=== PATIENT | female | born 1980 | race Caucasian/White ===

== ENCOUNTER 2020-10-15 07:03 | Day surgery (SDC) | payer MEDICAID ==
[2020-10-15] MEDS ORDERED: fentaNYL 100 MCG/2 ML SDV ONE (07:07)
[2020-10-15] MEDS ORDERED: Midazolam 1 MG/ML 2 ML SDV ONE (07:07)
[2020-10-15] MEDS ORDERED: Propofol 200 MG/20 ML SDV ONE (07:07)
[2020-10-15] MEDS ORDERED: Dextrose 5%-Lactated Ringers 1,000 ML IV SCH (07:30)
--- NOTE | 2020-10-19 12:03 | OR ---
DATE OF PROCEDURE: 10/15/2020 SURGEON: Jus Coelho MD PREOPERATIVE DIAGNOSIS: Severe reflux associated with previous laparoscopic adjustable gastric band placement with persistent and now recurrently severe morbid obesity. POSTOPERATIVE DIAGNOSES: 1. Esophageal dilation involving her laparoscopic adjustable gastric band with severe esophagitis, retained bile, and fluid within distal esophagus. 2. Moderate antral gastritis. OPERATIVE PROCEDURE: Upper GI endoscopy with biopsies of antrum for CLOtest. ANESTHESIA: IV sedation. INDICATIONS FOR PROCEDURE: A 40-year-old status post a laparoscopic adjustable gastric band placed in [place], [place] in 2007. Preoperatively, she had a weight of 402 pounds. Postoperatively, she did get down into the range of 300 to 310 pounds at one point, but now has had significant weight regain. Present weight is 386 pounds with a height of 5 feet 6 inches giving her a BMI of 62.5. The patient over the last 2 years has had progressive problems with severe reflux symptoms often waking up aspirating esophageal contents. Associated additional weight related comorbidities currently include PCOS, female infertility, hypertension, prediabetes, and considerable problems with pain in her weightbearing joints. Upper GI endoscopy was done on 10/15. This showed a marked esophageal dilation and severe distal esophagitis associated with the band placement. The band was otherwise in adequate location and was wide-open in terms of the location of the band (there is no obstruction located at that level indicating that we are dealing primarily with an esophageal dysmotility related to the band placement. The patient did have some moderate antral gastritis without erosions or ulcers. The pyloric channel and proximal duodenum were unremarkable. Biopsies were obtained from the antrum and sent for CLOtest for H pylori. Minimal bleeding from the biopsy sites was seen and the procedure was then concluded. The patient would appear to be a candidate for removal of the band and conversion to Steve-en- Y gastric bypass, and given the amount of reflux and likelihood of upcoming pulmonary complications and/or esophageal complications related to the problem, this would be at this point somewhat of an imperative procedure. This generally can be done laparoscopically. The plan at this point will be to proceed with a DICTATION ENDS HERE Jus Coelho MD /[id number]
== END 2020-10-15 10:35 | disposition home or self-care (01) ==
LOC: JP.SDS 07:03
PROVIDERS: ATTEND Surgery
DX: K29.70 Gastritis, unspecified, without bleeding (principal); K21.00 Gastro-esophageal reflux disease with esophagitis, without bleeding; E66.01 Morbid (severe) obesity due to excess calories; I10 Essential (primary) hypertension; E11.9 Type 2 diabetes mellitus without complications; Z98.890 Other specified postprocedural states; Z98.84 Bariatric surgery status; Z68.44 Body mass index [BMI] 60.0-69.9, adult
CPT/HCPCS: 36415; 84703; 87081; J2250; J2704; J3010; J7121

== ENCOUNTER 2020-11-29 07:15 | Inpatient (IN) | payer MEDICAID ==
[2020-11-29] MEDS ORDERED: Bupivacaine 0.5%/EPINEPHrine 1:200,000 50 ML MDV ONE ×2 (08:03→09:49)
[2020-11-29] MEDS ORDERED: Glycopyrrolate 0.2 MG/ML 5 ML MDV ONE (09:02)
[2020-11-29] MEDS ORDERED: Propofol 200 MG/20 ML SDV ONE (09:02)
[2020-11-29] MEDS ORDERED: Rocuronium 50 MG/5 ML Vial ONE ×2 (09:02→11:46)
[2020-11-29] MEDS ORDERED: Dexamethasone 4 MG/ML SDV ONE (09:02)
[2020-11-29] MEDS ORDERED: Succinylcholine 200 MG/10 ML MDV ONE (09:02)
[2020-11-29] MEDS ORDERED: Neostigmine Methylsulfate 1 MG/ML 5 ML Syringe ONE (09:02)
[2020-11-29] MEDS ORDERED: fentaNYL 250 MCG/5 ML SDV ONE ×3 (09:02→12:06)
[2020-11-29] MEDS ORDERED: Ondansetron 4 MG/2 ML SDV ONE (09:02)
[2020-11-29] MEDS ORDERED: Albuterol/Ipratropium 3.0-0.5 MG/3 ML Neb Soln NEB ONE (10:15)
[2020-11-29] MEDS ORDERED: Celecoxib 200 MG Cap PO ONE (10:15)
[2020-11-29] MEDS ORDERED: Dextrose 5%-Lactated Ringers 1,000 ML IV SCH (10:15)
[2020-11-29] MEDS ORDERED: Acetaminophen 500 MG Tab PO ONE (10:30)
[2020-11-29 10:54] LABS: HEMOGLOBIN A1C 5.9 % (4.5-6.2)
[2020-11-29] MEDS ORDERED: cefOXitin 2 GM in Sodium Chloride 0.9% 50 ML IV ONE (11:15)
[2020-11-29] MEDS ORDERED: Ketamine 500 MG/5 ML MDV IV SCH (11:30)
[2020-11-29] MEDS ORDERED: Magnesium Sulfate 5.7 GM in Sodium Chloride 0.9% 250 ML IV ONE (11:30)
[2020-11-29] MEDS ORDERED: Ketamine 50 MG in Sodium Chloride 0.9% 49.5 ML IV SCH (11:30)
[2020-11-29] MEDS ORDERED: Lactated Ringers 1,000 ML ONE (11:55)
[2020-11-29] MEDS: cefOXitin 2 GM Vial ONE ×3 (12:02→13:05)
[2020-11-29] MEDS ORDERED: hydrOXYzine HCL 100 MG/2 ML SDV IM ONE (13:38)
[2020-11-29] MEDS ORDERED: Ondansetron 4 MG/2 ML SDV IVPUSH ONE (13:40)
[2020-11-29] MEDS ORDERED: Lactated Ringers 1,000 ML IV SCH (15:00)
[2020-11-29] MEDS ORDERED: HYDROmorphone 0.5 MG/0.5 ML Syringe IVPUSH PRN (15:00)
[2020-11-29] MEDS ORDERED: diphenhydrAMINE 50 MG/ML SDV IVPUSH PRN (15:00)
[2020-11-29] MEDS ORDERED: Acetaminophen 500 MG Tab PO PRN (15:00)
[2020-11-29] MEDS ORDERED: Albuterol/Ipratropium 3.0-0.5 MG/3 ML Neb Soln INH PRN (15:00)
[2020-11-29] MEDS ORDERED: Labetalol 20 MG/4 ML Syringe IVPUSH PRN (15:00)
[2020-11-29] MEDS ORDERED: Glucagon,Human Recombinant 1 MG Vial IM PRN (15:00)
[2020-11-29] MEDS ORDERED: 50% Dextrose in Water 50 ML Syringe IVPUSH PRN (15:00)
[2020-11-29] MEDS ORDERED: Insulin Lispro 100 Unit/ML 3 ML KwikPen SUBCUT PRN (15:00)
[2020-11-29] MEDS ORDERED: Calcium Gluconate 10% 1 GM/10 ML SDV IVPUSH PRN (15:00)
[2020-11-29] MEDS: hydrOXYzine HCL 100 MG/2 ML SDV IM PRN ×2 (15:08→19:50)
[2020-11-29] MEDS: Dextrose 5%-Lactated Ringers 1,000 ML IV SCH (15:12)
[2020-11-29] MEDS: oxyCODONE 5 MG Tab PO PRN (15:42)
[2020-11-29] MEDS ORDERED: MVI, Adult with Vitamin K 10 ML, Thiamine 200 MG, Zinc/Copper/Manganese/Selenium 1 ML i... IV SCH ×4 (16:00)
[2020-11-29] MEDS: cefOXitin 2 GM in Sodium Chloride 0.9% 50 ML IV SCH ×2 (16:13→21:05)
[2020-11-29] MEDS: Acetaminophen 500 MG Tab PO SCH (16:19)
[2020-11-29] MEDS: Pantoprazole 40 MG Vial IVPUSH SCH (16:23)
[2020-11-29] MEDS: Albuterol/Ipratropium 3.0-0.5 MG/3 ML Neb Soln INH SCH ×2 (16:52→20:52)
[2020-11-29] MEDS: Ondansetron 4 MG/2 ML SDV IVPUSH PRN ×2 (18:25→23:41)
[2020-11-29] MEDS: HYDROmorphone 1 MG/ML Syringe IV PRN (18:25)
[2020-11-29] MEDS: Cyclobenzaprine 10 MG Tab PO PRN (19:51)
[2020-11-29] MEDS: Heparin Sodium 5,000 Units/ML Vial SUBCUT SCH (19:51)
[2020-11-29] MEDS: Doxepin 25 MG Cap PO SCH (20:52)
[2020-11-29] MEDS: DULoxetine 30 MG Cap PO SCH (20:52)
[2020-11-29] MEDS: Topiramate 100 MG Tab PO SCH (20:53)
[2020-11-30] MEDS: Acetaminophen 500 MG Tab PO SCH ×3 (00:10→15:35)
[2020-11-30] MEDS ORDERED: Iopamidol 612 MG/ML 50 ML SDV PO STA (02:12)
[2020-11-30] MEDS: oxyCODONE 5 MG Tab PO PRN (02:56)
[2020-11-30] MEDS: cefOXitin 2 GM in Sodium Chloride 0.9% 50 ML IV SCH ×4 (04:11→22:13)
[2020-11-30] MEDS: Dextrose 5%-Lactated Ringers 1,000 ML IV SCH (04:12)
[2020-11-30] MEDS: hydrOXYzine HCL 100 MG/2 ML SDV IM PRN ×2 (07:15→13:04)
[2020-11-30] MEDS: Ondansetron 4 MG/2 ML SDV IVPUSH PRN ×3 (07:16→20:45)
[2020-11-30] MEDS: Albuterol/Ipratropium 3.0-0.5 MG/3 ML Neb Soln INH SCH ×4 (07:22→20:45)
[2020-11-30] MEDS: Lactated Ringers 1,000 ML IV SCH (09:00)
[2020-11-30] MEDS: Metoclopramide 10 MG/2 ML SDV IVPUSH PRN (09:01)
[2020-11-30] MEDS: HYDROmorphone 1 MG/ML Syringe IV PRN ×2 (09:03→14:02)
--- NOTE | 2020-11-30 09:04 | CR ---
[facility] HISTORY: Postbariatric surgery FINDINGS: Patient swallowed water-soluble contrast. Upright views of the abdomen show no evidence of extravasation or obstruction. IMPRESSION: Status post bariatric surgery No extravasation or obstruction seen
[2020-11-30] MEDS: Heparin Sodium 5,000 Units/ML Vial SUBCUT SCH ×2 (09:09→20:46)
[2020-11-30] MEDS ORDERED: LORazepam 2 MG/ML SDV IVPUSH PRN (10:38)
[2020-11-30] MEDS ORDERED: Scopolamine 1.5 MG Transdermal Patch TRDERM PRN (10:38)
[2020-11-30] MEDS: Topiramate 100 MG Tab PO SCH ×3 (11:05→20:46)
[2020-11-30] MEDS: Celecoxib 200 MG Cap PO SCH ×3 (11:05→20:46)
[2020-11-30] MEDS: Pantoprazole 40 MG Vial IVPUSH SCH (15:35)
[2020-11-30] MEDS ORDERED: MVI, Adult with Vitamin K 10 ML, Thiamine 200 MG, Zinc/Copper/Manganese/Selenium 1 ML i... IV SCH ×4 (16:00)
[2020-11-30] MEDS: DULoxetine 30 MG Cap PO SCH (20:46)
[2020-11-30] MEDS: Doxepin 25 MG Cap PO SCH (20:47)
[2020-12-01] MEDS: Acetaminophen 500 MG Tab PO SCH ×3 (00:38→16:54)
[2020-12-01] MEDS: Metoclopramide 10 MG/2 ML SDV IVPUSH PRN ×3 (01:44→21:28)
[2020-12-01] MEDS: Lactated Ringers 1,000 ML IV SCH ×2 (03:15→12:58)
[2020-12-01] MEDS: Ondansetron 4 MG/2 ML SDV IVPUSH PRN ×3 (07:11→19:43)
[2020-12-01] MEDS: Albuterol/Ipratropium 3.0-0.5 MG/3 ML Neb Soln INH SCH ×4 (07:25→21:21)
[2020-12-01] MEDS ORDERED: HYDROmorphone 2 MG Tab PO PRN (07:40)
[2020-12-01] MEDS ORDERED: Magnesium Hydroxide 400 MG/5 ML Susp 30 ML Cup PO PRN (07:41)
[2020-12-01] MEDS ORDERED: Pneumococcal Polyvalent-23 Vaccine 0.5 ML SDV IM ONE (09:00)
[2020-12-01] MEDS ORDERED: Magnesium Hydroxide 400 MG/5 ML Susp 30 ML Cup PO ONE (09:00)
[2020-12-01] MEDS ORDERED: Cyanocobalamin (Vitamin B12) 1,000 MCG/ML SDV IM ONE (09:00)
[2020-12-01] MEDS: Celecoxib 200 MG Cap PO SCH ×2 (09:37→21:21)
[2020-12-01] MEDS: Topiramate 100 MG Tab PO SCH ×2 (09:37→21:22)
[2020-12-01] MEDS: Heparin Sodium 5,000 Units/ML Vial SUBCUT SCH ×2 (09:38→19:47)
[2020-12-01] MEDS: Pantoprazole 40 MG Vial IVPUSH SCH (16:54)
[2020-12-01] MEDS: Cyclobenzaprine 10 MG Tab PO PRN (19:44)
[2020-12-01] MEDS: DULoxetine 30 MG Cap PO SCH (21:20)
[2020-12-01] MEDS: Doxepin 25 MG Cap PO SCH (21:21)
[2020-12-02] MEDS: Acetaminophen 500 MG Tab PO SCH ×2 (01:10→09:15)
[2020-12-02] MEDS: Albuterol/Ipratropium 3.0-0.5 MG/3 ML Neb Soln INH SCH (07:29)
[2020-12-02] MEDS ORDERED: Ondansetron 4 MG Tab.DIS PO PRN (08:52)
[2020-12-02] MEDS ORDERED: Scopolamine 1.5 MG Transdermal Patch TRDERM ONE (09:00)
[2020-12-02] MEDS: Celecoxib 200 MG Cap PO SCH (09:15)
[2020-12-02] MEDS: Heparin Sodium 5,000 Units/ML Vial SUBCUT SCH (09:15)
[2020-12-02] MEDS: Topiramate 100 MG Tab PO SCH (09:15)
--- NOTE | 2020-12-07 11:27 | PN ---
DATE OF SERVICE: 12/01/2020 The patient has been afebrile with stable vital signs. Oral intake still appeared little bit on the lower side. We will keep her one more day to work on that issue with the ongoing nausea and switch over to strictly oral Dilaudid for pain. The Dilaudid may be covering for some of her nausea. Her blood sugars are all running in the 120s, and we will discontinue the Accu-Cheks. Jus Coelho MD /[id number]
--- NOTE | 2020-12-07 13:18 | PN ---
DATE OF SERVICE: 11/30/2020 The patient has been afebrile with stable vital signs. She has been a little slow to get up and moving. She did retain urine overnight and had a straight cath of around 500 mL. If she fails to void today, we will put a Calderon catheter in and leave that in overnight. Otherwise, upper GI x-ray looks good. We will encourage increased oral intake today and increasing activity and work with pulmonary toilet. Jus Coelho MD /[id number]
--- NOTE | 2020-12-10 11:11 | DISCH ---
FINAL DIAGNOSES: Persistent morbid obesity with ongoing intolerance to laparoscopic adjustable gastric band. SECONDARY DIAGNOSES: 1. Polycystic ovary syndrome. 2. History of hypertension. 3. Chronic low back pain. 4. Posttraumatic stress disorder. 5. History of asthma. 6. History of migraine headaches. OPERATIVE PROCEDURES: This was done on 11/29/2020, diagnostic laparoscopy with: 1. Removal of laparoscopic adjustable gastric band system. 2. Formation of Steve-en-Y gastric bypass. 3. Genaro-Cut needle liver biopsy. 4. Partial gastrectomy. SUMMARY: This is a 40-year-old female presenting with history of previous laparoscopic adjustable gastric band, placed in [place]. She presented with severe heartburn and on upper endoscopy was noted to have markedly dilated esophagus related to the band. After consultation, she wished to proceed to be converted to a Steve-en-Y gastric bypass. This was done on the date of admission along with the liver biopsy. She had a portion of the pouch which was somewhat ischemic, which was resected as well at the time of the procedure. Initially, the patient had quite a bit in way of nausea. This has now seemingly resolved and oral intake is becoming adequate. The plan will be to discharge home with stay on a step-2 diet until the first appointment which will be with Tana Hall PA-C on 12/10/2020 at [facility]. She will be taking only Celebrex as needed for pain. Otherwise, her blood sugars have all been in the 120s off any metformin, and we will have her go off the metformin at this point. The PCOS should likewise improve with weight loss. She will be discharged with a first scopolamine patch, which she has been instructed to take off in 4 days, then Zofran 4 mg ODT. Otherwise, she will be continued on her usual medications other than we will have her stop the omeprazole after 1 week and with the gastric bypass let us have her avoid naproxen. Celebrex would be an adequate alternative long-term should she need medications from an arthritis standpoint. /[id number]
--- NOTE | 2020-12-10 17:56 | OR ---
DATE OF PROCEDURE: 11/29/2020 SURGEON: Jus Coelho MD PREOPERATIVE DIAGNOSIS: Intolerance of laparoscopic adjustable gastric band with persistent morbid obesity. POSTOPERATIVE DIAGNOSES: 1. Intolerance of laparoscopic adjustable gastric band with persistent morbid obesity. 2. Marked hepatomegaly. 3. Area of deserosalization of gastric fundus, status post takedown of laparoscopic adjustable gastric band. OPERATIVE PROCEDURES: Diagnostic laparoscopy with: 1. Removal of laparoscopic adjustable gastric band system (91654). 2. Formation of Steve-en-Y gastric bypass (16281). 3. Genaro-Cut needle liver biopsy (71084). 4. Partial gastrectomy (39334). ANESTHESIA: General. SOFTWARE RELEASE MANAGER: Tana Hall PA-C. INDICATIONS FOR PROCEDURE: This is a 40-year-old status post laparoscopic adjustable gastric band placement in [place], who presents now with increasing intolerance to the band system with large amount of reflux and esophageal dilation noted on preoperative examination. She remains morbidly obese as well with a BMI in excess of 60, and the plan is to proceed with removal of band system and conversion to a Steve-en-Y gastric bypass. Potential risks including bleeding, infection, injury to underlying viscera, problems with leaks from GI tract closures, and possible problems with bowel obstruction over time were all reviewed along with the remote possibility of cardiopulmonary, septic, or hemorrhagic complications leading to , and the patient wishes to proceed. DETAILS OF PROCEDURE: The patient was taken to the operating room, and after general endotracheal anesthesia was induced, a Calderon catheter was inserted and she was converted to a lithotomy position. The abdomen was then prepped and draped. 15 cm inferior and 5 cm left of the xiphoid process, a transverse incision was made and peritoneal cavity entered under direct vision with an Optiview trocar, inflated to 15 mmHg pressure of CO2. Laparoscope was then reinserted. No underlying trocar insertion site injuries were seen. Bilateral transversus abdominis plane blocks were then placed and 5 additional trocars were placed across the upper and mid abdomen. The patient was noted to have a marked hepatomegaly with liver volume being roughly 2 to 3 times normal and grossly fatty infiltrated. Genaro-Cut needle biopsies were obtained from the left lobe of the liver. Minimal bleeding from the biopsy sites was controlled with electrocautery. The omentum was then divided in the midline up to level of the transverse colon with Harmonic Scalpel. The port tubing in that area was somewhere in the way of visualization and a portion of this was excised and sent separately at this time. The small bowel was then identified at the ligament of Treitz and traced out 150 cm distal to that point, where it was divided transversely with a MARYURI stapler. Small bowel was then traced out additional 150 cm where the [id number] enteroenterostomy was accomplished with an internal firing of the Endo-MARYURI 60 mm stapler. Common opening was then closed transversely with the same stapler and angles anastomosed and mesenteric defect approximated with some 0 Ethibond stitch along with fibrin sealant. The Steve limb was then brought through an antecolic approach up to the level of the gastroesophageal junction without significant tension. The liver was then retracted anteriorly. There were some adhesions between the band system and liver which were taken down with a combination of electrocautery and Harmonic Scalpel. The gastric fundus used to fix the band in position was then dissected away from its more superior attachments with a combination of electrocautery and braulio. Portion of the gastric fundus on its lateral aspect was devascularized and this was excised by means of MARYURI braulio at this point to avoid issues of leak and such postoperatively. Once all the adhesions of the band were divided, the band itself was transected and removed. This was disconnected and then taken out of the abdomen, leaving only the port as part of the band system in place at this time. Using the band imprint, the stomach was then divided with a series of MARYURI black loads. This was done to a point where there was complete division of any attachments between the upper stomach and the lower stomach by means of re-division of the band imprint. The anvil of a 25 mm EEA stapler was then attached to [place] sump type tube, brought down through the mouth, and taken out through a small opening in the proximal gastric pouch, allowing the anvil likewise to be pulled down to within the gastric pouch. Divided end of the Steve limb was then opened and main body of the EEA stapler passed several centimeters into the lumen of the small bowel brought up the anvil, united with it thus creating a gastrojejunostomy. Upon removal of the stapler, double donuts of mucosa were noted within it. The small bowel was closed off with a vascular staple line. Gastrojejunostomy was then reinforced with several 3-0 Vicryl seromuscular sutures along with fibrin sealant. A leak test was accomplished with injection of 120 mL of air in the gastric pouch while it was submerged with a cefoxitin-containing saline solution. No leaks were identified. A single Salvatore-Omer drain was then taken out through the left lateral trocar site and positioned adjacent to the gastrojejunostomy from there up into the splenic fossa. Trocars were then removed and the peritoneal cavity deflated. Incisions were closed with some 4-0 Vicryl skin stitch which was also used to fix the drain. The incision over the port was then made and remaining short-segment of port tubing was freed up from the surrounding soft tissues and removed. That incision was then closed with some 3-0 Vicryl stitch deep and 4-0 Vicryl skin stitch. Dressing was applied. The patient was taken to the recovery room in satisfactory condition. Physician porcelain buildup assistant, Tana Hall, played an essential role in assisting in this case, helping to position the patient, retract structures as needed, as well as suturing and cutting sutures when indicated. Her presence improved patient safety and decreased operative time. Jus Coelho MD /[id number]
--- NOTE | 2020-12-12 12:12 | DISCH ---
FINAL DIAGNOSES: 1. Intolerance to laparoscopic adjustable gastric band with persistent morbid obesity. 2. Marked hepatomegaly. 3. Deserosalization of the stomach, status post takedown of laparoscopic adjustable gastric band. SECONDARY DIAGNOSES: 1. Anxiety. 2. Chronic leg and low back pain. 3. Depression. 4. Hypertension. OPERATIVE PROCEDURES: This was done on 11/29, diagnostic laparoscopy with: 1. Removal of laparoscopic adjustable gastric band system. 2. Formation of Steve-en-Y gastric bypass with long limb gastroenterostomy. 3. Genaro-Cut needle liver biopsy. 4. Partial gastrectomy. SUMMARY: This is a 40-year-old presenting with persistent morbid obesity and increasingly intolerance to laparoscopic adjustable gastric band with upper endoscopy recently showing marked dilation of esophagus with severe distal esophagitis consistent with a picture of esophageal dilation and dysmotility above the band. After preoperative discussion, the patient wishes to undergo the removal of laparoscopic adjustable gastric band system and conversion to a Steve-en-Y gastric bypass. At that time, the patient was noted to have marked hepatomegaly as one might expect, and liver biopsies were obtained and portion of the gastric fundus used to wrap around and replaced the deserosalization that was excised. Postoperatively, she had a little bit slow recovery in terms of increasing activity and getting her bowels moving. The problems eventually had resolved after we discharged home at this time, and she will be following with Tana Hall in [facility] on 12/10/2020. She will be on usual medications plus Tylenol and Celebrex as needed for pain. She will not be requiring any narcotics on discharge. /[id number]
== END 2020-12-02 11:00 | disposition home or self-care (01) | DRG 621 ==
LOC: EDSTATUS 07:15 → JP.SDS 09:28 → JP.MS 13:00
PROVIDERS: ADMIT Surgery; ATTEND Surgery
PROC: 0D164ZA Bypass Stomach to Jejunum, Percutaneous Endoscopic Approach (ICD-10-PCS; principal; 2020-11-29)
PROC: 0DP64CZ Removal of Extraluminal Device from Stomach, Percutaneous Endoscopic Approach (ICD-10-PCS; 2020-11-29)
PROC: 0FB24ZX Excision of Left Lobe Liver, Percutaneous Endoscopic Approach, Diagnostic (ICD-10-PCS; 2020-11-29)
PROC: 0DB64ZZ Excision of Stomach, Percutaneous Endoscopic Approach (ICD-10-PCS; 2020-11-29)
DX: E66.01 Morbid (severe) obesity due to excess calories (principal); R16.0 Hepatomegaly, not elsewhere classified; F41.9 Anxiety disorder, unspecified; G89.29 Other chronic pain; M54.5 Low back pain; F32.9 Major depressive disorder, single episode, unspecified; I10 Essential (primary) hypertension; F43.10 Post-traumatic stress disorder, unspecified; G43.909 Migraine, unspecified, not intractable, without status migrainosus; J45.909 Unspecified asthma, uncomplicated; E28.2 Polycystic ovarian syndrome; Z68.44 Body mass index [BMI] 60.0-69.9, adult; Z90.49 Acquired absence of other specified parts of digestive tract; Z87.891 Personal history of nicotine dependence; Z88.5 Allergy status to narcotic agent; Z88.0 Allergy status to penicillin; Z91.030 Bee allergy status; Z88.2 Allergy status to sulfonamides; Z88.8 Allergy status to other drugs, medicaments and biological substances; K31.9 Disease of stomach and duodenum, unspecified
CPT/HCPCS: 36415; 51798; 74240; 74240-26; 80053; 82728; 82962; 83036; 83735; 84100; 85027; 86850; 86900; 86901; 88300; 88305; 88307; 88313; 93005; 94640; 94762; A9270-GY; C9113; J0171; J0330; J0694; J1100; J1170; J1200; J1644; J1815; J2060; J2405; J2704; J2710; J2765; J2795; J3010; J3410; J3411; J3420; J3475; J3490; J7030; J7050; J7120; J7121; J7620-GY; Q9967

== ENCOUNTER 2021-01-25 09:07 | Day surgery (SDC) | payer MEDICAID ==
[2021-01-25] MEDS ORDERED: Lactated Ringers 1,000 ML IV SCH (09:45)
[2021-01-25 10:00] LABS: CORONAVIRUS COVID-19 NAA NEGATIVE (NEGATIVE)
[2021-01-25] MEDS ORDERED: Cyanocobalamin (Vitamin B12) 1,000 MCG/ML SDV IM ONE (10:00)
[2021-01-25] MEDS ORDERED: Ondansetron 4 MG/2 ML SDV IVPUSH ONE (10:02)
[2021-01-25] MEDS ORDERED: MVI, Adult with Vitamin K 10 ML, Zinc/Copper/Manganese/Selenium 1 ML, Thiamine 200 MG i... IV ONE ×4 (10:45)
[2021-01-25] MEDS ORDERED: fentaNYL 100 MCG/2 ML SDV ONE (11:19)
[2021-01-25] MEDS ORDERED: Propofol 200 MG/20 ML SDV ONE ×2 (11:19→11:45)
[2021-01-25] MEDS ORDERED: Midazolam 1 MG/ML 2 ML SDV ONE (11:19)
[2021-01-25] MEDS ORDERED: Dexamethasone 4 MG/ML SDV ONE (11:20)
--- NOTE | 2021-02-03 13:36 | OR ---
DATE OF PROCEDURE: 01/25/2021 SURGEON: Jus Coelho MD PREOPERATIVE DIAGNOSIS: Probable stricture at gastrojejunostomy. POSTOPERATIVE DIAGNOSES: 1. Tight stricture of gastrojejunostomy. 2. Foreign body (ingested food) lodged at gastrojejunostomy. OPERATIVE PROCEDURE: Upper gastrointestinal endoscopy with: 1. Dilation of gastrojejunostomy (76884). 2. Removal of foreign body (ingested food) at gastrojejunostomy (91808). ANESTHESIA: IV sedation. INDICATION FOR PROCEDURE: This is a 40-year-old status post band conversion to Steve-en-Y gastric bypass on 11/29/2020. She presents now with symptoms suggestive of stricturing at her gastrojejunostomy. Plan is to proceed with upper GI endoscopy with dilation as indicated. Potential risks including bleeding and perforation were discussed, and the patient wishes to proceed. DETAILS OF PROCEDURE: The patient was taken to the operating room and placed in a left lateral decubitus position. IV sedation was administered, after which the upper GI endoscope was passed orally through the length of the esophagus into the area of the gastrojejunostomy. Some solid food was present at that level, and below this, the patient was noted to have a tight stricture at the gastrojejunostomy. The gastrointestinal catheter was centered across the anastomosis and inflated to 30-Sinhala size. This was held in position for 1 minute, after which balloon catheter was deflated and withdrawn. The ingested foreign material was then grasped and manipulated down into the jejunum for safe passage distally. At that point, no further problems were noted and the procedure concluded. The patient was taken to the recovery room in satisfactory condition. The patient will likely require additional dilation based on today's findings and will be instructed to call when she feels symptoms of a stricture recurring. Jus Coelho MD /[id number]
== END 2021-01-25 13:15 | disposition home or self-care (01) ==
LOC: JP.SDS 09:07
PROVIDERS: ATTEND Surgery
DX: K22.2 Esophageal obstruction (principal); T18.128A Food in esophagus causing other injury, initial encounter; F17.210 Nicotine dependence, cigarettes, uncomplicated; Z01.812 Encounter for preprocedural laboratory examination; Z20.822 Contact with and (suspected) exposure to COVID-19; Z98.84 Bariatric surgery status
CPT/HCPCS: 0241U; 43245; 43247; J1100; J2250; J2405; J2704; J3010; J3411; J3420; J7120

== ENCOUNTER 2021-02-19 06:33 | Day surgery (SDC) | payer MEDICAID ==
[2021-02-19] MEDS ORDERED: Propofol 200 MG/20 ML SDV ONE (07:09)
[2021-02-19] MEDS ORDERED: Midazolam 1 MG/ML 2 ML SDV ONE (07:09)
[2021-02-19] MEDS ORDERED: fentaNYL 100 MCG/2 ML SDV ONE (07:09)
[2021-02-19 07:21] LABS: CORONAVIRUS COVID-19 NAA NEGATIVE (NEGATIVE)
[2021-02-19] MEDS ORDERED: Lactated Ringers 1,000 ML IV SCH (08:15)
[2021-02-19] MEDS ORDERED: Cyanocobalamin (Vitamin B12) 1,000 MCG/ML SDV IM ONE (08:30)
[2021-02-19] MEDS ORDERED: Dexamethasone 4 MG/ML SDV ONE (09:09)
[2021-02-19] MEDS ORDERED: MVI, Adult with Vitamin K 10 ML, Thiamine 200 MG, Chromium/Copper/Mang/Selen/Zn 1 ML in... IV ONE ×4 (09:30)
--- NOTE | 2021-02-20 16:36 | OR ---
DATE OF PROCEDURE: 02/19/2021 SURGEON: Jus Coelho MD PREOPERATIVE DIAGNOSIS: Probable stricture at gastrojejunostomy. POSTOPERATIVE DIAGNOSIS: Moderately tight stricture at gastrojejunostomy. PROCEDURE PERFORMED: Upper gastrointestinal endoscopy with dilation of gastrojejunostomy (53745). ANESTHESIA: IV sedation. INDICATION FOR PROCEDURE: This is a 40-year-old status post Steve-en-Y gastric bypass on 11/29/2020 who presents now with some stricturing at her gastrojejunostomy. Plan is to proceed with upper endoscopy with dilation as indicated. Potential risks including bleeding and perforation were discussed, and the patient wishes to proceed. DETAILS OF PROCEDURE: The patient was taken to the operating room and placed in a left lateral decubitus position. IV sedation was administered after which the upper GI endoscope was passed orally through the length of the esophagus into the area of the gastrojejunostomy. The anastomosis was fairly tightly strictured. Bard gastrointestinal catheter was centered across the anastomosis and inflated to 30-Azerbaijani size. This was held in position for 1 minute after which the balloon catheter was deflated and withdrawn. Scope was easily then passed through the anastomosis. There were no complications evident. The scope was removed, and the patient was taken to the recovery room in satisfactory condition. Jus Coelho MD /[id number]
== END 2021-02-19 10:51 | disposition home or self-care (01) ==
LOC: JP.SDS 06:33
PROVIDERS: ATTEND Surgery
DX: K91.89 Other postprocedural complications and disorders of digestive system (principal); I10 Essential (primary) hypertension; E66.9 Obesity, unspecified; Z01.812 Encounter for preprocedural laboratory examination; Z20.822 Contact with and (suspected) exposure to COVID-19; Z68.43 Body mass index [BMI] 50.0-59.9, adult
CPT/HCPCS: 0241U; 43245; J1100; J2250; J2704; J3010; J3411; J3420; J7120

== ENCOUNTER 2021-04-08 06:10 | Day surgery (SDC) | payer MEDICAID ==
[~2021-04-08 06:10] MED LIST: Cyanocobalamin (Vitamin B12) 1,000 MCG/ML SDV IM ONE; Lactated Ringers 1,000 ML IV SCH; MVI, Adult with Vitamin K 10 ML, Zinc/Copper/Manganese/Selenium 1 ML, Thiamine 200 MG i... IV ONE
[2021-04-08] MEDS ORDERED: Lactated Ringers 1,000 ML IV ONE (07:00)
[2021-04-08] MEDS ORDERED: Cyanocobalamin (Vitamin B12) 1,000 MCG/ML SDV IM ONE (07:00)
[2021-04-08] MEDS ORDERED: fentaNYL 100 MCG/2 ML SDV ONE (07:02)
[2021-04-08] MEDS ORDERED: Midazolam 1 MG/ML 2 ML SDV ONE (07:02)
[2021-04-08] MEDS ORDERED: Propofol 200 MG/20 ML SDV ONE ×2 (07:02→09:04)
[2021-04-08] MEDS ORDERED: MVI, Adult with Vitamin K 10 ML, Thiamine 200 MG, Zinc/Copper/Manganese/Selenium 1 ML i... IV ONE ×4 (08:00)
[2021-04-08] MEDS ORDERED: Lidocaine 1% 2 ML ONE (09:41)
[2021-04-12 18:10] LABS: 25-HYDROXY, VITAMIN D 16 ng/mL (.); 25-HYDROXY, VITAMIN D-2 <1.0 ng/mL (.)
--- NOTE | 2021-04-15 12:48 | OR ---
DATE OF PROCEDURE: 04/08/2021 SURGEON: Jus Coelho MD PREOPERATIVE DIAGNOSIS: Probable stricture at gastrojejunostomy. POSTOPERATIVE DIAGNOSIS: Moderate stricture at gastrojejunostomy. PROCEDURE PERFORMED: Upper gastrointestinal endoscopy with dilation of gastrojejunostomy (53882). ANESTHESIA: IV sedation. INDICATION FOR PROCEDURE: The patient is status post band to Steve-en-Y conversion on 11/29/2020. She presents now with some recurrent stricturing at her gastrojejunostomy. Plan is to proceed with upper GI endoscopy with dilation as indicated. Potential risks including bleeding and perforation were discussed, and the patient wishes to proceed. DETAILS OF PROCEDURE: The patient was taken to the operating room and placed in the left lateral decubitus position. IV sedation was administered after which the upper GI endoscope was passed orally through the length of the esophagus and into the area of the gastrojejunostomy. The patient was noted to have moderate stricture of the gastrojejunostomy measuring around 8 mm in diameter. A Bard gastrointestinal balloon catheter was centered across the anastomosis and inflated to 30-Polish size. This was held in position for 1 minute after which the balloon catheter was deflated and withdrawn. The scope could easily then be passed through the anastomosis. No complications were noted, and the procedure was then concluded. The patient was taken to the recovery room in satisfactory condition. Jus Coelho MD /[id number]
== END 2021-04-08 11:10 | disposition home or self-care (01) ==
LOC: JP.SDS 06:10
PROVIDERS: ATTEND Surgery
DX: K91.89 Other postprocedural complications and disorders of digestive system (principal); Z98.84 Bariatric surgery status; Z01.812 Encounter for preprocedural laboratory examination; Z20.822 Contact with and (suspected) exposure to COVID-19
CPT/HCPCS: 36415; 43245; 76000; 80053; 82306; 82525; 82607; 82728; 82746; 83735; 84425; 84590; 84630; 84703; 85027; 87635; J2250; J2704; J3010; J3411; J3420; J7120; U0002

== ENCOUNTER 2021-04-23 07:13 | Day surgery (SDC) | payer MEDICAID ==
[2021-04-23] MEDS ORDERED: Midazolam 1 MG/ML 2 ML SDV ONE (07:36)
[2021-04-23] MEDS ORDERED: fentaNYL 100 MCG/2 ML SDV ONE (07:36)
[2021-04-23] MEDS ORDERED: Propofol 200 MG/20 ML SDV ONE (07:36)
[2021-04-23] MEDS ORDERED: Cyanocobalamin (Vitamin B12) 1,000 MCG/ML SDV IM ONE (07:45)
[2021-04-23] MEDS ORDERED: Lactated Ringers 1,000 ML IV ONE (08:45)
[2021-04-23] MEDS ORDERED: MVI, Adult with Vitamin K 10 ML, Thiamine 200 MG, Zinc/Copper/Manganese/Selenium 1 ML i... IV ONE ×4 (09:45)
[2021-04-23] MEDS ORDERED: Dexamethasone 4 MG/ML SDV ONE (11:48)
[2021-04-23] MEDS ORDERED: Ondansetron 4 MG/2 ML SDV ONE (11:50)
--- NOTE | 2021-05-05 14:49 | OR ---
DATE OF PROCEDURE: 04/23/2021 SURGEON: Jus Coelho MD PREOPERATIVE DIAGNOSIS: Stricture at gastrojejunostomy. POSTOPERATIVE DIAGNOSIS: Moderate stricturing at gastrojejunostomy. OPERATIVE PROCEDURE: Upper gastrointestinal endoscopy with dilation of gastrojejunostomy (90564). ANESTHESIA: IV sedation. INDICATION FOR PROCEDURE: The patient presents with some recurrent stricturing at gastrojejunostomy status post revision of the procedure which is resulting in some recurrent stricturing. Plan is to proceed with upper GI endoscopy with dilation as indicated. Potential risks including bleeding and perforation were discussed, and the patient wishes to proceed. DETAILS OF PROCEDURE: The patient was taken to the operating room, placed in a left lateral decubitus position. IV sedation was administered, after which the upper GI endoscope was passed orally through the length of the esophagus into the area of the gastrojejunostomy scope could not be quite passed through that area. There was no retained fluid and minimal gross inflammation in the mucosa. A Bard gastrointestinal balloon catheter was centered across the anastomosis and inflated to 30-Colombian size. This was held in position for 1 minute, after which balloon catheter was deflated and withdrawn. The scope was easily passed through the anastomosis. No complications were noted. The patient was taken to the recovery room in satisfactory condition. Given recurrent nature of patient's stricturing, we will set her up for followup endoscopy and additional dilation in 2 weeks. Jus Coelho MD /[id number]
== END 2021-04-23 13:07 | disposition home or self-care (01) ==
LOC: JP.SDS 07:13
PROVIDERS: ATTEND Surgery
DX: K22.2 Esophageal obstruction (principal); K20.90 Esophagitis, unspecified without bleeding; I10 Essential (primary) hypertension; Z01.812 Encounter for preprocedural laboratory examination; Z20.822 Contact with and (suspected) exposure to COVID-19; Z88.0 Allergy status to penicillin; Z88.1 Allergy status to other antibiotic agents; Z88.2 Allergy status to sulfonamides; Z88.6 Allergy status to analgesic agent; Z88.8 Allergy status to other drugs, medicaments and biological substances; Z91.030 Bee allergy status
CPT/HCPCS: 43245; 81025; 87635; C1726; J1100; J2250; J2405; J2704; J3010; J3411; J3420; J7120; U0002

== ENCOUNTER 2021-05-08 06:06 | Day surgery (SDC) | payer MEDICAID ==
[2021-05-08] MEDS ORDERED: Lactated Ringers 1,000 ML IV SCH (07:00)
[2021-05-08] MEDS ORDERED: Midazolam 1 MG/ML 2 ML SDV ONE (07:12)
[2021-05-08] MEDS ORDERED: Propofol 200 MG/20 ML SDV ONE (07:12)
[2021-05-08] MEDS ORDERED: fentaNYL 100 MCG/2 ML SDV ONE (07:12)
[2021-05-08] MEDS ORDERED: Cyanocobalamin (Vitamin B12) 1,000 MCG/ML SDV SUBCUT ONE (07:15)
[2021-05-08] MEDS ORDERED: Dexamethasone 4 MG/ML SDV ONE (07:30)
[2021-05-08] MEDS ORDERED: MVI, Adult with Vitamin K 10 ML, Thiamine 200 MG, Zinc/Copper/Manganese/Selenium 1 ML i... IV ONE ×4 (08:00)
[2021-05-08] MEDS ORDERED: Ondansetron 4 MG/2 ML SDV IVPUSH ONE (08:45)
--- NOTE | 2021-05-15 22:02 | OR ---
DATE OF PROCEDURE: 05/08/2021 SURGEON: Jus Coelho MD PREOPERATIVE DIAGNOSIS: Probable stricture at gastrojejunostomy. POSTOPERATIVE DIAGNOSIS: Mild to moderate stricture at gastrojejunostomy. OPERATIVE PROCEDURE: Upper gastrointestinal endoscopy with dilation of gastrojejunostomy (53843). ANESTHESIA: IV sedation. INDICATIONS FOR PROCEDURE: This is a 40-year-old female presenting with problems with recurrent stricturing at her gastrojejunostomy. This is more of a scheduled semi-elective procedure due to the recurrent nature of her stricturing. This is following converting of a band to Steve-en-Y gastric bypass status. Plan is to do upper GI endoscopy with dilation as indicated. Potential risks including bleeding and perforation were discussed, and the patient wishes to proceed. DETAILS OF PROCEDURE: The patient was taken to the operating room and placed in the left lateral decubitus position. IV sedation was administered, after which, the upper GI endoscope was passed orally through the length of the esophagus. The 1 cm scope could just barely pass through the anastomosis. At this point, a gastrointestinal balloon catheter was centered across the anastomosis and inflated to 36-Luxembourgish size, level 1. The balloon catheter was deflated and withdrawn. There appeared to be satisfactory dilation present. The scope was removed. The procedure was then concluded. There were no evident complications. Jus Coelho MD /[id number]
== END 2021-05-08 10:41 | disposition home or self-care (01) ==
LOC: JP.SDS 06:06
PROVIDERS: ATTEND Surgery
DX: K91.89 Other postprocedural complications and disorders of digestive system (principal); I10 Essential (primary) hypertension; E11.9 Type 2 diabetes mellitus without complications; Z01.812 Encounter for preprocedural laboratory examination; Z20.822 Contact with and (suspected) exposure to COVID-19; Z98.84 Bariatric surgery status
CPT/HCPCS: 43245; 81025; 87635; C1726; J1100; J2250; J2405; J2704; J3010; J3411; J3420; J7120; U0002

== ENCOUNTER 2021-06-04 05:35 | Day surgery (SDC) | payer MEDICAID ==
[2021-06-04] MEDS: Lactated Ringers 1,000 ML IV SCH (06:37)
[2021-06-04] MEDS: Cyanocobalamin (Vitamin B12) 1,000 MCG/ML SDV IM ONE (06:42)
[2021-06-04] MEDS: Glycopyrrolate 0.2 MG/ML 2 ML SDV IVPUSH ONE (07:04)
[2021-06-04] MEDS ORDERED: Midazolam 1 MG/ML 2 ML SDV ONE (07:15)
[2021-06-04] MEDS ORDERED: fentaNYL 100 MCG/2 ML SDV ONE (07:15)
[2021-06-04] MEDS ORDERED: Propofol 200 MG/20 ML SDV ONE (07:15)
[2021-06-04] MEDS ORDERED: Dexamethasone 4 MG/ML SDV ONE (07:26)
[2021-06-04] MEDS: MVI, Adult with Vitamin K 10 ML, Thiamine 200 MG, Zinc/Copper/Manganese/Selenium 1 ML i... IV ONE ×4 (07:43)
[2021-06-04] MEDS: Ondansetron 4 MG/2 ML SDV IVPUSH ONE (09:09)
[2021-06-04] MEDS: HYDROmorphone 1 MG/ML Syringe IVPUSH ONE (09:12)
--- NOTE | 2021-06-05 16:27 | OR ---
DATE OF PROCEDURE: 06/04/2021 SURGEON: Jus Coelho MD PREOPERATIVE DIAGNOSIS: Probable stricture at gastrojejunostomy. POSTOPERATIVE DIAGNOSIS: [id number] stricture at gastrojejunostomy. OPERATIVE PROCEDURE: Upper gastrointestinal endoscopy with dilation of gastrojejunostomy (22835). ANESTHESIA: IV sedation. INDICATION FOR PROCEDURE: This is a 41-year-old status post a conversion of Lap-Band status to Steve-en-Y gastric bypass on 11/29/2020. She presents with some symptoms suggestive of recurrent stricturing at her gastrojejunostomy. Plan is to proceed with upper GI endoscopy with dilation as indicated. Potential risks including bleeding and perforation were discussed and the patient wishes to proceed. DETAILS OF PROCEDURE: The patient was taken to the operating room and placed in a left lateral decubitus position. IV sedation was administered after which the upper GI endoscope was passed orally through the length of the esophagus and into the area of the gastric pouch almost we passed through the anastomosis, were not quite. Bard gastrointestinal balloon catheter was then centered across the anastomosis using fluoroscopic surveillance and inflated to 45-[place] level 1, and this was held in position for 1 minute after which the balloon catheter was deflated and withdrawn. The scope could easily then be passed through the anastomosis. At this point, no complications were noted and the procedure concluded. The patient was taken to the recovery room in satisfactory condition. Plan will be to proceed with empirical repeat endoscopy in 6 weeks which seems to in this patient but in the past, we have done more recently in this case, every 4 weeks. Given the improved findings today, we will go with the 6-week interval and as soon as on a p.r.n. basis. One additional finding was that on recent lab test her vitamin A level was noted to be somewhat low at 29.1 with a lower limit of normal in that lab being 32.5 mcg/dL, and given this, we will add 10,000 units a day of vitamin A supplementation to her vitamins and other supplements and we will plan to proceed with a followup endoscopy evaluation as indicated in July. Jus Coelho MD /[id number]
== END 2021-06-04 10:06 | disposition home or self-care (01) ==
LOC: JP.SDS 05:35
PROVIDERS: ATTEND Surgery
DX: K91.89 Other postprocedural complications and disorders of digestive system (principal); I10 Essential (primary) hypertension; Z01.812 Encounter for preprocedural laboratory examination; Z20.822 Contact with and (suspected) exposure to COVID-19
CPT/HCPCS: 36415; 43245; 80053; 82306; 82525; 82607; 82728; 82746; 83036; 83735; 84100; 84425; 84590; 84630; 85025; 87635; J1100; J1170; J2250; J2405; J2704; J3010; J3411; J3420; J7120; U0002

== ENCOUNTER 2021-07-16 07:04 | Day surgery (SDC) | payer MEDICAID ==
[2021-07-16] MEDS ORDERED: Propofol 200 MG/20 ML SDV ONE (07:55)
[2021-07-16] MEDS ORDERED: fentaNYL 100 MCG/2 ML SDV ONE (07:55)
[2021-07-16] MEDS ORDERED: Midazolam 1 MG/ML 2 ML SDV ONE (07:55)
[2021-07-16] MEDS: Lactated Ringers 1,000 ML IV SCH (07:55)
[2021-07-16 08:05] LABS: CORONAVIRUS COVID-19 NAA NEGATIVE (NEGATIVE)
[2021-07-16] MEDS: Cyanocobalamin (Vitamin B12) 1,000 MCG/ML SDV IM ONE (08:44)
[2021-07-16] MEDS: MVI, Adult with Vitamin K 10 ML, Thiamine 200 MG, Chromium/Copper/Mang/Selen/Zn 1 ML in... IV ONE ×4 (08:47)
[2021-07-16] MEDS ORDERED: Ondansetron 4 MG/2 ML SDV ONE (10:24)
[2021-07-16] MEDS ORDERED: Dexamethasone 4 MG/ML SDV ONE (10:25)
[2021-07-16] MEDS: Ondansetron 4 MG/2 ML SDV IVPUSH ONE (10:42)
--- NOTE | 2021-07-17 12:05 | OR ---
DATE OF PROCEDURE: 07/16/2021 SURGEON: Jus Coelho MD PREOPERATIVE DIAGNOSIS: Possible stricture at gastrojejunostomy. 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 OPERATIVE PROCEDURE: Upper GI endoscopy with dilation of gastrojejunostomy ([id number]). ANESTHESIA: IV sedation. 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 Presently, she has some dysphagia referable to the gastrojejunostomy area, but not having any food intolerance per se. Plan is to proceed with upper GI endoscopy with dilation as indicated. Potential risks including bleeding and perforation were discussed, and the patient wishes to proceed. DETAILS OF PROCEDURE: The patient was taken to the operating room and placed in a left lateral decubitus position. IV sedation was administered after which the upper GI endoscope was passed orally through the length of the esophagus into the gastrojejunostomy and from there through the Steve limb roughly 20 cm. At this point, the patient was noted to have a very mild stricturing of the gastrojejunostomy. The scope was easily passed through that and there was minimal finding of inflammation at the area of the gastric pouch to gastrojejunostomy. Inflated to 45- Citizen [place] size. This was held in position for 1 minute, after which balloon catheter was deflated and withdrawn. Scope was easily passed through the anastomosis once again and no complications were noted. Procedure was then concluded and the patient was taken to the recovery room in a satisfactory condition. At this point, I think we will not schedule the patient for any further upper endoscopies. This problem appears to have currently resolved at this point and she will be following up with [facility] as arranged. Jus Coelho MD Job #: [id number]
== END 2021-07-16 11:44 | disposition home or self-care (01) ==
LOC: JP.SDS 07:04
PROVIDERS: ATTEND Surgery
DX: K91.89 Other postprocedural complications and disorders of digestive system (principal); I10 Essential (primary) hypertension; F17.200 Nicotine dependence, unspecified, uncomplicated; Z01.812 Encounter for preprocedural laboratory examination; Z20.822 Contact with and (suspected) exposure to COVID-19
CPT/HCPCS: 0241U; 43245; 81025; J1100; J2250; J2405; J2704; J3010; J3411; J3420; J7120